=== PATIENT | male | born 1995 | race Caucasian/White ===

== ENCOUNTER 2021-01-10 22:02 | Emergency (ER) | payer OTHER ==
[~2021-01-10] VITALS: Ht 175.3 cm; Wt 88.9 kg
[2021-01-10 22:13] VITALS: BP 170/106
--- NOTE | 2021-01-10 22:40 | NUR ---
RECEIVED IN BED 4 WITH C/O POSSIBLE ABSCESS NEAR RECTUM AREA. PT STATES HE WAS ALSO C/O DIZZY AND ANXIETY IN THE MORNING. PMH: FRANKI ALVARES MED: FELICIANO
--- NOTE | 2021-01-10 22:40 | NUR ---
PT AMBULATED TO BED 04.
--- NOTE | 2021-01-10 22:43 | NUR ---
DR LYNN AT BEDSIDE FOR EXAM
[2021-01-10] MEDS ORDERED: LORazepam 1 MG TAB PO ONE (23:30)
[2021-01-10] MEDS ORDERED: HYDR-2734 TP (23:31)
--- NOTE | 2021-01-10 23:48 | NUR ---
Patient discharged with v/s stable. Written and verbal after care instructions given and explained. Patient verbalized understanding. Ambulatory with steady gait. All questions addressed prior to discharge. Advised to follow up with PMD.
[2021-01-10 23:50] VITALS: BP 170/106
== END 2021-01-10 23:48 | disposition home or self-care (01) ==
LOC: MED 22:02
DX: K62.89 Other specified diseases of anus and rectum (principal); F10.239 Alcohol dependence with withdrawal, unspecified; K64.5 Perianal venous thrombosis; Z79.899 Other long term (current) drug therapy
CPT/HCPCS: 99283